=== PATIENT | female | born 1955 | race Two or more races ===

== ENCOUNTER 2024-06-20 12:45 | Outpatient (CLI) | payer OTHER | END 2024-06-20 12:48 | disposition home or self-care (01) | LOC: EKG 12:45 | DX: Z01.818 Encounter for other preprocedural examination (principal); I10 Essential (primary) hypertension; N39.0 Urinary tract infection, site not specified; D50.9 Iron deficiency anemia, unspecified; D68.8 Other specified coagulation defects; R89.9 Unspecified abnormal finding in specimens from other organs, systems and tissues; Z01.810 Encounter for preprocedural cardiovascular examination ==

== ENCOUNTER 2024-06-20 13:49 | Outpatient (CLI) | payer OTHER | END 2024-06-20 13:56 | disposition home or self-care (01) | LOC: RAD 13:49 | DX: Z01.818 Encounter for other preprocedural examination (principal); I10 Essential (primary) hypertension; N39.0 Urinary tract infection, site not specified; D50.9 Iron deficiency anemia, unspecified; D68.8 Other specified coagulation defects; R89.9 Unspecified abnormal finding in specimens from other organs, systems and tissues; Z01.810 Encounter for preprocedural cardiovascular examination ==

== ENCOUNTER 2025-02-22 08:11 | Outpatient (CLI) | payer OTHER | END 2025-02-22 08:14 | disposition home or self-care (01) | LOC: MAMO-SONO 08:11 | DX: N64.4 Mastodynia (principal); Z12.31 Encounter for screening mammogram for malignant neoplasm of breast ==